=== PATIENT | male | born 1975 | race Hispanic/Latino ===

== ENCOUNTER 2017-10-09 18:33 | Inpatient (IN) | payer BC ==
[~2017-10-09] VITALS: Ht 165.1 cm; Wt 68.0 kg
[2017-10-09] MEDS ORDERED: ALBUTEROL SULF 0.083% NEB SOLN 3 ML NEB NEB STA (18:56)
[2017-10-09] MEDS ORDERED: IPRATROPIUM BROMIDE 0.02% 2.5 ML NEB NEB STA (18:56)
[2017-10-09] MEDS ORDERED: ACETAMINOPHEN 325 MG TAB ONE (19:02)
[2017-10-09] MEDS ORDERED: ACETAMINOPHEN 325 MG TAB PO ONE (19:15)
[2017-10-09 19:18] LABS: BASOPHILS % 0.2 % (0.0-1.0); EOSINOPHILS % 0.1 % (0.0-6.0); HEMATOCRIT 42.3 % (38.2-49.6); HEMOGLOBIN 14.1 g/dL (14.0-18.0); MEAN CORPUSCULAR HEMOGLOBIN 27.6 pg (28-32); MEAN CORPUSCULAR HGB CONC 33.3 g/dL (31-35); MEAN CORPUSCULAR VOLUME 82.8 fL (81-99); MONOCYTES # (AUTO) 1.6 (0.2-0.8); MONOCYTES % 8.8 % (4.4-11.3); NEUTROPHILS # (AUTO) 14.2 (2.1-6.9); NEUTROPHILS % 79.3 % (38.7-80.0); PLATELET COUNT 252 x10e3/uL (140-360); RED BLOOD COUNT 5.11 x10e6/uL (4.3-5.7)
--- NOTE | 2017-10-09 19:20 | Diagnostic Imaging Report ---
EXAMINATION: CHEST 2 VIEWS INDICATION: Bodyaches. Fever. COMPARISON: None FINDINGS: TUBES and LINES: None. LUNGS: Small nodular densities projected on the right upper lobe may represent granulomata, however, stability is uncertain. There is no evidence of pneumonia or pulmonary edema. PLEURA: Mild biapical pleural scarring. No pleural effusion or pneumothorax. HEART AND MEDIASTINUM: The cardiomediastinal silhouette is unremarkable. BONES AND SOFT TISSUES: No acute osseous lesion. Soft tissues are unremarkable. UPPER ABDOMEN: No free air under the diaphragm. IMPRESSION: 1. No acute thoracic abnormality. 2. Small nodular densities in the right upper lobe may represent granulomata, however, recommend a follow-up chest PA and lateral views in 3 months to evaluate stability. Signed by: Dr. Johnnie Moore M.D. on 10/09/2017 7:16 PM
[2017-10-09 19:35] LABS: STREPTOCOCCUS GRP A ANTIGEN NEGATIVE (NEGATIVE)
[2017-10-09 19:39] LABS: ALANINE AMINOTRANSFERASE 23 IU/L (0-55); ALBUMIN 3.5 g/dL (3.5-5.0); ALBUMIN/GLOBULIN RATIO 0.8 (0.8-2.0); ALKALINE PHOSPHATASE 63 IU/L (40-150); ANION GAP 11.5 mmol/L (8-16); BLOOD UREA NITROGEN 16 mg/dL (7-26); BUN/CREATININE RATIO 14 (6-25); CARBON DIOXIDE 27 mmol/L (22-29); CHLORIDE 101 mmol/L (98-107); CREATININE, SERUM 1.12 mg/dL (0.72-1.25); EST GLOMERULAR FILTRATION RATE > 60 ML/MIN (60-); GLUCOSE 117 mg/dL (74-118); POTASSIUM 3.5 mmol/L (3.5-5.1); SODIUM 136 mmol/L (136-145)
[2017-10-09 19:46] LABS: INFLUENZAE A&B ANTIGEN (RAPID) NEGATIVE (NEGATIVE)
[2017-10-09] MEDS ORDERED: IOPAMIDOL 370 MG/ML 200 ML INFUS..BTL INJ ONE (20:13)
[2017-10-09] MEDS ORDERED: SODIUM CHLORIDE 0.9% 50ML 50 ML ONE (20:13)
--- NOTE | 2017-10-09 20:28 | Diagnostic Imaging Report ---
EXAM: CT Chest WITH contrast 10/09/2017 7:42 PM INDICATION: Fever. Cough. Congestion. COMPARISON: None. Chest x-ray dated . TECHNIQUE: Chest was scanned utilizing a multidetector helical scanner from the lung apex through the level of the adrenal glands without administration of IV contrast. Coronal and sagittal reformations were obtained. Routine protocol was performed. IV CONTRAST: 100 mL of Omnipaque 300 RADIATION DOSE: Total DLP: 473.34 mGy*cm Estimated effective dose: (DLP x 0.014 x size factor) mSv COMPLICATIONS: None FINDINGS: LINES/ TUBES: None. LUNGS AND AIRWAYS: Focal patchy consolidation in the posterior right lower lobe, and small reticular nodular opacities in the inferior right middle lobe, right lower lobe and to lesser degree left lower lobe posteriorly, consistent with infectious etiology, possibly aspiration pneumonia. 3 mm calcified granuloma in the right upper lobe on image 36 series 3 corresponds with the nodule identified on chest x-ray performed earlier on the same day. There is mild mucous plugging in posterior right lower lobe bronchi. PLEURA: No pleural effusion or pneumothorax. HEART AND MEDIASTINUM: The thyroid gland is normal. No mediastinal, hilar or axillary lymphadenopathy. The heart is normal in size.. There is no pericardial effusion. UPPER ABDOMEN: Limited non-contrast views of the upper abdomen show subcentimeter low-attenuation lesions scattered throughout the liver, which are too small to be characterize, however, most likely benign in etiology (small cysts (. The adrenal glands are normal. BONES: No acute osseous abnormality. SOFT TISSUES: Unremarkable. IMPRESSION: 1. Findings with infectious etiology/pneumonia involving the right middle lobe, and bilateral lower lobes, right greater than left. This may be secondary to aspiration. 2. 3 mm calcified granuloma in the right upper lobe. Signed by: Dr. Johnnie Moore M.D. on 10/09/2017 8:25 PM
[2017-10-09] MEDS ORDERED: AZITHROMYCIN 500MG/NS 250 ML 250 ML ONE (20:44)
[2017-10-09] MEDS ORDERED: ACETAMINOPHEN 325 MG TAB PO PRN (20:45)
[2017-10-09] MEDS ORDERED: AZITHROMYCIN 500MG/SOD CHL 0.9% 250ML BAG IV SCH (20:45)
[2017-10-09] MEDS: AZITHROMYCIN 500MG/NS 250 ML 250 ML IV SCH (20:46)
[2017-10-09] MEDS: ALBUTEROL SULF 0.083% NEB SOLN 3 ML NEB NEB SCH ×2 (20:47→23:55)
[2017-10-09 20:56] LABS: CREATINE KINASE 50 IU/L (30-200)
[2017-10-09] MEDS ORDERED: CEFTRIAXONE SOD 1 GM VIAL IV SCH (21:00)
--- OUTSIDE RECORDS SUMMARY | 2017-10-09 21:01 | XMS REPORT ---
Author Author [facility] Address Unknown Phone Unavailable Care Team Providers Care Election Assistant Name Role Phone SHYLA VELEZ Unavailable Unavailable Problems This patient has no known problems. Allergies, Adverse Reactions, Alerts This patient has no known allergies or adverse reactions. Medications This patient has no known medications. Results Test Description Test Time Test Comments Text Results Atomic Results Result Comments CT CHEST W [place] [address] Patient Name: ALPESH SCHAFER MR #: [id number] : 1975 Age/Sex: 42/M Req #: [id number] Adm Physician: Ordered by: DEBBIE MTZ TOWN MANAGER Report #: [id number] Location: ER Room/Bed: Procedure: [id number] CT/CT CHEST W Exam Date: 10/09/17 Exam Time: 1944 REPORT STATUS: Signed EXAM: CT Chest WITH contrast 10/09/2017 7:42 PM INDICATION: Fever. Cough. Congestion. COMPARISON: None. Chest x-ray dated . TECHNIQUE: Chest was scanned utilizing a multidetector helical scanner from the lung apex through the level of the adrenal glands without administration of IV contrast. Coronal and sagittal reformations were obtained. Routine protocol was performed. IV CONTRAST: 100 mL of Omnipaque 300 RADIATION DOSE: Total DLP: 473.34 mGy*cm Estimated effective dose: (DLP x 0.014 x size factor) mSv COMPLICATIONS: None FINDINGS: LINES/ TUBES: None. LUNGS AND AIRWAYS: Focal patchy consolidation in the posterior right lower lobe, and small reticular nodular opacities in the inferior right middle lobe, right lower lobe and to lesser degree left lower lobe posteriorly, consistent with infectious etiology, possibly aspiration pneumonia. 3 mm calcified granuloma in the right upper lobe on image 36 series 3 corresponds with the nodule identified on chest x-ray performed earlier on the same day. There is mild mucous plugging in posterior right lower lobe bronchi. PLEURA: No pleural effusion or pneumothorax. HEART AND MEDIASTINUM: The thyroid gland is normal. No mediastinal, hilar or axillary lymphadenopathy. The heart is normal in size.. There is no pericardial effusion. UPPER ABDOMEN: Limited non-contrast views of the upper abdomen show subcentimeter low- attenuation lesions scattered throughout the liver, which are too small to be characterize, however, most likely benign in etiology (small cysts (. The adrenal glands are normal. BONES: No acute osseous abnormality. SOFT TISSUES: Unremarkable. IMPRESSION: 1. Findings with infectious etiology/pneumonia involving the right middle lobe, and bilateral lower lobes , right greater than left. This may be secondary to aspiration. 2. 3 mm calcified granuloma in the right upper lobe. Signed by: Dr. Johnnie Calzada M.D. on 10/09/2017 8:25 PM Dictated By: JOSHUA CALZADA MD, MD 24 Transcribed By : JOSE RAMON on 10/09/172024 COPY TO: DEBBIE MTZ TOWN MANAGER CHEST 2 VIEWS [place] [address] Patient Name: ALPESH SCHAFER MR #: [id number] : 1975 Age/Sex: 42/M Req #: [id number] Adm Physician: Ordered by: DEBBIE MTZ TOWN MANAGER Report #: [id number] Location: ER Room/Bed: Procedure: [id number] DX/CHEST 2 VIEWS Exam Date: 10/09/17 Exam Time: 1899 REPORT STATUS: Signed EXAMINATION: CHEST 2 VIEWS INDICATION: Bodyaches. Fever. COMPARISON: None FINDINGS: TUBES and LINES: None. LUNGS: Small nodular densities projected on the right upper lobe may represent granulomata, however, stability is uncertain. There is no evidence of pneumonia or pulmonary edema. PLEURA: Mild biapical pleural scarring. No pleural effusion or pneumothorax. HEART AND MEDIASTINUM: The cardiomediastinal silhouette is unremarkable. BONES AND SOFT TISSUES: No acute osseous lesion. Soft tissues are unremarkable. UPPER ABDOMEN: No free air under the diaphragm. IMPRESSION: 1. No acute thoracic abnormality. 2. Small nodular densities in the right upper lobe may represent granulomata, however, recommend a follow-up chest PA and lateral views in 3 months to evaluate stability. Signed by: Dr. Johnnie Calzada M.D. on 10/09/2017 7:16 PM Dictated By: JOSHUA CALZADA MD, MD 15 Transcribed By: JOSE RAMON on 10/09/171915 COPY TO: DEBBIE MTZ NP
[2017-10-09] MEDS: IPRATROPIUM BROMIDE 0.02% 2.5 ML NEB NEB SCH ×2 (21:12→23:55)
[2017-10-09] MEDS: SODIUM CHLORIDE 0.9% 1000ML 1,000 ML IV SCH (21:51)
[2017-10-09 22:30] VITALS: BP 112/67
[2017-10-10] VITALS (8 sets, daily range): BP systolic 96–119; BP diastolic 58–70
[2017-10-10] MEDS: ALBUTEROL SULF 0.083% NEB SOLN 3 ML NEB NEB SCH ×6 (03:50→23:15)
[2017-10-10] MEDS: SODIUM CHLORIDE 0.9% 1000ML 1,000 ML IV SCH ×3 (05:08→20:36)
[2017-10-10 06:44] LABS: BASOPHILS % 0.1 % (0.0-1.0); HEMATOCRIT 36.7 % (38.2-49.6); HEMOGLOBIN 12.3 g/dL (14.0-18.0); LYMPHOCYTES # (AUTO) 1.7 (1.0-3.2); LYMPHOCYTES % 12.1 % (18.0-39.1); MEAN CORPUSCULAR HEMOGLOBIN 27.7 pg (28-32); MEAN CORPUSCULAR HGB CONC 33.5 g/dL (31-35); MEAN CORPUSCULAR VOLUME 82.7 fL (81-99); MONOCYTES # (AUTO) 1.2 (0.2-0.8); MONOCYTES % 8.4 % (4.4-11.3); NEUTROPHILS # (AUTO) 10.7 (2.1-6.9); NEUTROPHILS % 77.9 % (38.7-80.0); PLATELET COUNT 219 x10e3/uL (140-360); RED BLOOD COUNT 4.44 x10e6/uL (4.3-5.7); RED CELL DISTRIBUTION WIDTH 14.3 % (11.7-14.4)
[2017-10-10] MEDS: IPRATROPIUM BROMIDE 0.02% 2.5 ML NEB NEB SCH ×3 (07:00→21:15)
[2017-10-10 07:07] LABS: CREATINE KINASE 28 IU/L (30-200)
[2017-10-10 07:22] LABS: ALANINE AMINOTRANSFERASE 20 IU/L (0-55); ALBUMIN 3.1 g/dL (3.5-5.0); ALBUMIN/GLOBULIN RATIO 1.1 (0.8-2.0); ALKALINE PHOSPHATASE 52 IU/L (40-150); ANION GAP 13.7 mmol/L (8-16); BLOOD UREA NITROGEN 14 mg/dL (7-26); BUN/CREATININE RATIO 19 (6-25); CALCIUM 8.2 mg/dL (8.4-10.2); CARBON DIOXIDE 24 mmol/L (22-29); CHLORIDE 106 mmol/L (98-107); CREATININE, SERUM 0.75 mg/dL (0.72-1.25); EST GLOMERULAR FILTRATION RATE > 60 ML/MIN (60-); GLUCOSE 122 mg/dL (74-118); POTASSIUM 3.7 mmol/L (3.5-5.1); SODIUM 140 mmol/L (136-145)
[2017-10-10] MEDS: FAMOTIDINE 20 MG TAB PO SCH ×2 (12:00→16:30)
[2017-10-10] MEDS ORDERED: CEFTRIAXONE SOD 1 GM/NS 50 ML 50 ML IV SCH (12:00)
[2017-10-10] MEDS: GUAIFENESIN 600MG/DEXTROMETHORPHAN 30MG TABSR PO SCH ×3 (12:00→23:06)
[2017-10-10] MEDS ORDERED: CEFTRIAXONE SOD 1 GM VIAL IV ONE (12:15)
--- NOTE | 2017-10-10 13:30 | History and Physical ---
PRIMARY CARE PROVIDER: Dr. Michael Barraza, a local doctor that does not come to the hospital. CHIEF COMPLAINT: Fever, shortness of breath and cough. HISTORY OF PRESENT ILLNESS: Mr. Quarles is a 42-year-old gentleman who has had upper respiratory symptoms, cough, fever, chest congestion for about the last 2 weeks. He was seen initially by his PCP, treated with allergy medication. He did not get better, was seen a few days ago in the office, was started on Levaquin, again did not get better. Came to the emergency room for evaluation, was found have a temperature of 101.5, a white count of 17.8, and multifocal pneumonia on the CT chest, was admitted for IV antibiotics for failure of outpatient therapy for pneumonia. REVIEW OF SYSTEMS: He has had subjective fever, chills. He has had sinus congestion. Denies sore throat. He denies chest pain or palpitations. He actually has had some chest pain that is pleuritic in nature. He has had chest congestion and a productive cough and shortness of breath. He denies abdominal pain, nausea, vomiting or melena. He denies dysuria or flank pain. He denies rash or pruritus. He denies joint pain or swelling. He denies headache, vertigo or loss of consciousness. He denies depression, agitation, homicidal or suicidal ideation. PAST MEDICAL HISTORY: Negative. He has no chronic medical problems, takes no chronic medication. He has no past surgical history as well. He has NO KNOWN DRUG ALLERGIES, and he is not a smoker. FAMILY HISTORY: Unremarkable. SOCIAL HISTORY: The patient is , bilingual, speaks good Croatian. He does not smoke, drink or use illegal drugs, and he is generally independently functioning. PHYSICAL EXAM: PSYCHIATRIC: He is alert and oriented times 3 with normal mood and affect. CONSTITUTIONAL: He has a normal body habitus. Is in no acute distress. VITAL SIGNS: Temperature initially 101.5, currently 97.6. Pulse rate initially 105, currently 71. Blood pressure initially 132/69, currently 115/70. Respiratory rate 20. O2 sat 98% on 2 liter nasal cannula. HEENT: His head is atraumatic. His eyes are anicteric with clear conjunctivae. Ears and nares are without erythema or discharge. Oropharynx is clear. NECK: Is supple with no mass or thyromegaly. LYMPHATIC SYSTEM: He has no palpable cervical, axillary or inguinal adenopathy. CARDIOVASCULAR: His heart has a regular rate and rhythm without murmur or extra heart sound. He has no carotid bruit. He has no peripheral edema. He has palpable dorsal pedal pulses. RESPIRATORY: Lungs are clear to auscultation and percussion with normal respiratory effort. GASTROINTESTINAL: His abdomen is soft without organomegaly, masses or tenderness. He has normal bowel sounds present. CUTANEOUS: His skin is warm and dry to the touch with no rash or skin breakdown. MUSCULOSKELETAL: His joints are in normal alignment without erythema or swelling. He has no calf tenderness. NEUROLOGIC: Exam is nonfocal with intact cranial nerves and no motor or sensory deficits. DIAGNOSTIC STUDIES: Chest x-ray shows a nodular density in the right upper lobe. CT scan of the chest shows right middle lobe and bilateral lower lobe infiltrates consistent with multifocal pneumonia. His flu screen is negative. His strep screen is negative. His Monospot is negative. Troponin less than 0.001 and less than 0.001. CBC shows a white count of 17.88 with 79% neutrophils, 11% lymphocytes, 9% monocytes. Hemoglobin 14.1, hematocrit 42.3 and platelet count 252,000. His chemistry shows normal electrolytes. CO2 27. Creatinine 1.12, BUN 16 for a normal GFR. Glucose 117. Calcium 9.0. IMPRESSION AND PLAN: 1. Bilateral multifocal pneumonia with sepsis that has failed outpatient treatment. The patient is admitted for supplemental oxygen, aggressive nebulizer treatments, IV Zithromax, Rocephin, and p.o. Mucinex for expectoration. 2. For prophylaxis, the patient will be getting Lovenox for DVT prophylaxis and Pepcid for GI prophylaxis. Job#: [id number] RAGHAV
[2017-10-10] MEDS: ENOXAPARIN SOD INJ 40 MG/0.4 ML SYR SC SCH (17:00)
[2017-10-10] MEDS: AZITHROMYCIN 500MG/NS 250 ML 250 ML IV SCH (20:39)
[2017-10-10] MEDS: CEFTRIAXONE SOD 1 GM VIAL IV SCH (20:39)
[2017-10-11] VITALS (8 sets, daily range): BP systolic 103–125; BP diastolic 58–76
[2017-10-11] MEDS: IPRATROPIUM BROMIDE 0.02% 2.5 ML NEB NEB SCH ×4 (01:00→19:00)
[2017-10-11] MEDS: SODIUM CHLORIDE 0.9% 1000ML 1,000 ML IV SCH ×3 (04:36→19:18)
[2017-10-11] MEDS: GUAIFENESIN 600MG/DEXTROMETHORPHAN 30MG TABSR PO SCH ×4 (06:00→23:55)
[2017-10-11 06:29] LABS: BASOPHILS % 0.3 % (0.0-1.0); EOSINOPHILS # (AUTO) 0.2 (0.0-0.4); EOSINOPHILS % 1.7 % (0.0-6.0); HEMATOCRIT 37.7 % (38.2-49.6); HEMOGLOBIN 12.5 g/dL (14.0-18.0); LYMPHOCYTES # (AUTO) 3.6 (1.0-3.2); LYMPHOCYTES % 29.9 % (18.0-39.1); MEAN CORPUSCULAR HEMOGLOBIN 27.5 pg (28-32); MEAN CORPUSCULAR HGB CONC 33.2 g/dL (31-35); MONOCYTES % 8.5 % (4.4-11.3); NEUTROPHILS % 58.9 % (38.7-80.0); PLATELET COUNT 234 x10e3/uL (140-360); RED BLOOD COUNT 4.54 x10e6/uL (4.3-5.7); RED CELL DISTRIBUTION WIDTH 14.4 % (11.7-14.4)
[2017-10-11 06:50] LABS: ANION GAP 10.1 mmol/L (8-16); BLOOD UREA NITROGEN 10 mg/dL (7-26); BUN/CREATININE RATIO 11 (6-25); CALCIUM 8.6 mg/dL (8.4-10.2); CARBON DIOXIDE 26 mmol/L (22-29); CHLORIDE 106 mmol/L (98-107); CREATININE, SERUM 0.92 mg/dL (0.72-1.25); EST GLOMERULAR FILTRATION RATE > 60 ML/MIN (60-); GLUCOSE 95 mg/dL (74-118); POTASSIUM 4.1 mmol/L (3.5-5.1); SODIUM 138 mmol/L (136-145)
[2017-10-11] MEDS: ALBUTEROL SULF 0.083% NEB SOLN 3 ML NEB NEB SCH ×5 (07:40→23:00)
[2017-10-11] MEDS: FAMOTIDINE 20 MG TAB PO SCH ×2 (08:03→16:48)
[2017-10-11] MEDS: CEFTRIAXONE SOD 1 GM VIAL IV SCH ×2 (08:03→20:46)
[2017-10-11] MEDS: ENOXAPARIN SOD INJ 40 MG/0.4 ML SYR SC SCH (16:48)
[2017-10-11] MEDS: AZITHROMYCIN 500MG/NS 250 ML 250 ML IV SCH (20:46)
[2017-10-12] VITALS (7 sets, daily range): BP systolic 96–118; BP diastolic 58–77
[2017-10-12] MEDS: IPRATROPIUM BROMIDE 0.02% 2.5 ML NEB NEB SCH ×5 (01:00→23:20)
[2017-10-12] MEDS: ALBUTEROL SULF 0.083% NEB SOLN 3 ML NEB NEB SCH ×6 (03:00→23:20)
[2017-10-12] MEDS: SODIUM CHLORIDE 0.9% 1000ML 1,000 ML IV SCH (04:36)
[2017-10-12] MEDS: GUAIFENESIN 600MG/DEXTROMETHORPHAN 30MG TABSR PO SCH ×3 (05:36→17:00)
[2017-10-12 08:00] LABS: BASOPHILS % 0.4 % (0.0-1.0); EOSINOPHILS # (AUTO) 0.5 (0.0-0.4); EOSINOPHILS % 7.3 % (0.0-6.0); HEMATOCRIT 37.4 % (38.2-49.6); HEMOGLOBIN 12.3 g/dL (14.0-18.0); LYMPHOCYTES # (AUTO) 3.1 (1.0-3.2); LYMPHOCYTES % 42.7 % (18.0-39.1); MEAN CORPUSCULAR HEMOGLOBIN 27.6 pg (28-32); MEAN CORPUSCULAR HGB CONC 32.9 g/dL (31-35); MEAN CORPUSCULAR VOLUME 83.9 fL (81-99); MONOCYTES # (AUTO) 0.6 (0.2-0.8); MONOCYTES % 7.8 % (4.4-11.3); PLATELET COUNT 251 x10e3/uL (140-360); RED BLOOD COUNT 4.46 x10e6/uL (4.3-5.7); RED CELL DISTRIBUTION WIDTH 14.3 % (11.7-14.4)
[2017-10-12] MEDS: CEFTRIAXONE SOD 1 GM VIAL IV SCH ×2 (08:25→21:00)
[2017-10-12] MEDS: FAMOTIDINE 20 MG TAB PO SCH ×2 (08:25→17:00)
[2017-10-12 08:28] LABS: BLOOD UREA NITROGEN 10 mg/dL (7-26); BUN/CREATININE RATIO 13 (6-25); CALCIUM 8.7 mg/dL (8.4-10.2); CARBON DIOXIDE 27 mmol/L (22-29); CHLORIDE 105 mmol/L (98-107); EST GLOMERULAR FILTRATION RATE > 60 ML/MIN (60-); GLUCOSE 89 mg/dL (74-118); MAGNESIUM 1.9 MG/DL (1.3-2.1); PHOSPHORUS 3.3 MG/DL (2.3-4.7); SODIUM 138 mmol/L (136-145)
[2017-10-12] MEDS ORDERED: ONDANSETRON HCL INJ 2 MG/ML VIAL IV PRN (12:45)
[2017-10-12] MEDS ORDERED: HYDRALAZINE HCL 20 MG/ML VIAL IV PRN (12:45)
[2017-10-12] MEDS: ACETYLCYSTEINE 20% INHAL SOLN 30 ML VIAL INH SCH ×3 (15:00→23:00)
[2017-10-12] MEDS: ENOXAPARIN SOD INJ 40 MG/0.4 ML SYR SC SCH (17:00)
[2017-10-12] MEDS: AZITHROMYCIN 500MG/NS 250 ML 250 ML IV SCH (21:00)
[2017-10-13] VITALS: BP 121/77
[2017-10-13] MEDS: ACETYLCYSTEINE 20% INHAL SOLN 30 ML VIAL INH SCH ×6 (03:00→23:00)
[2017-10-13] MEDS: ALBUTEROL SULF 0.083% NEB SOLN 3 ML NEB NEB SCH ×6 (03:11→22:50)
[2017-10-13 04:00] VITALS: BP 112/59
[2017-10-13] MEDS: GUAIFENESIN 600MG/DEXTROMETHORPHAN 30MG TABSR PO SCH ×5 (05:23→23:52)
[2017-10-13 07:10] LABS: BASOPHILS % 0.5 % (0.0-1.0); EOSINOPHILS # (AUTO) 0.3 (0.0-0.4); EOSINOPHILS % 4.2 % (0.0-6.0); HEMATOCRIT 38.9 % (38.2-49.6); HEMOGLOBIN 12.9 g/dL (14.0-18.0); LYMPHOCYTES # (AUTO) 2.1 (1.0-3.2); MEAN CORPUSCULAR HEMOGLOBIN 27.8 pg (28-32); MEAN CORPUSCULAR HGB CONC 33.2 g/dL (31-35); MEAN CORPUSCULAR VOLUME 83.8 fL (81-99); MONOCYTES # (AUTO) 0.4 (0.2-0.8); MONOCYTES % 5.2 % (4.4-11.3); NEUTROPHILS # (AUTO) 5.1 (2.1-6.9); PLATELET COUNT 298 x10e3/uL (140-360); RED BLOOD COUNT 4.64 x10e6/uL (4.3-5.7); RED CELL DISTRIBUTION WIDTH 14.2 % (11.7-14.4)
[2017-10-13 07:43] LABS: ANION GAP 10.8 mmol/L (8-16); BLOOD UREA NITROGEN 12 mg/dL (7-26); BUN/CREATININE RATIO 16 (6-25); CALCIUM 8.9 mg/dL (8.4-10.2); CARBON DIOXIDE 25 mmol/L (22-29); CHLORIDE 104 mmol/L (98-107); CREATININE, SERUM 0.76 mg/dL (0.72-1.25); EST GLOMERULAR FILTRATION RATE > 60 ML/MIN (60-); GLUCOSE 100 mg/dL (74-118); POTASSIUM 3.8 mmol/L (3.5-5.1); SODIUM 136 mmol/L (136-145)
[2017-10-13] MEDS: IPRATROPIUM BROMIDE 0.02% 2.5 ML NEB NEB SCH ×4 (07:45→22:50)
--- NOTE | 2017-10-13 08:06 | Diagnostic Imaging Report ---
EXAMINATION: CHEST SINGLE (PORTABLE) INDICATION: \S\f/u pna \[id number] \S\[id number] COMPARISON: 10/09/2017 FINDINGS: AP view TUBES and LINES: None. LUNGS: Lungs are well inflated. No definite focal consolidation. Airspace opacity seen in right base on prior CT are not as clearly seen on this exam. PLEURA: No pleural effusion or pneumothorax. HEART AND MEDIASTINUM: The cardiomediastinal silhouette is unremarkable. BONES AND SOFT TISSUES: No acute osseous lesion. Soft tissues are unremarkable. UPPER ABDOMEN: No free air under the diaphragm. IMPRESSION: No definite focal consolidation. Airspace opacity seen in right base on prior CT, are not as clearly seen on this exam. Signed by: Dr. Aashish Blackman MD on 10/13/2017 8:03 AM
[2017-10-13] MEDS: CEFTRIAXONE SOD 1 GM VIAL IV SCH ×2 (08:45→21:00)
[2017-10-13] MEDS: FAMOTIDINE 20 MG TAB PO SCH ×2 (08:45→17:06)
[2017-10-13 11:10] VITALS: BP 116/56
[2017-10-13 12:00] VITALS: BP 127/73
[2017-10-13 16:00] VITALS: BP 123/60
[2017-10-13] MEDS: ENOXAPARIN SOD INJ 40 MG/0.4 ML SYR SC SCH (17:16)
[2017-10-13 20:00] VITALS: BP 108/82
[2017-10-13] MEDS: AZITHROMYCIN 500MG/NS 250 ML 250 ML IV SCH (21:00)
[2017-10-14] VITALS: BP 101/60
[2017-10-14] MEDS: ACETYLCYSTEINE 20% INHAL SOLN 30 ML VIAL INH SCH ×3 (03:00→11:00)
[2017-10-14] MEDS: ALBUTEROL SULF 0.083% NEB SOLN 3 ML NEB NEB SCH ×3 (03:00→10:59)
[2017-10-14] MEDS: GUAIFENESIN 600MG/DEXTROMETHORPHAN 30MG TABSR PO SCH (05:10)
[2017-10-14 06:28] LABS: BASOPHILS % 0.4 % (0.0-1.0); EOSINOPHILS # (AUTO) 0.4 (0.0-0.4); EOSINOPHILS % 4.1 % (0.0-6.0); HEMATOCRIT 38.8 % (38.2-49.6); HEMOGLOBIN 12.6 g/dL (14.0-18.0); LYMPHOCYTES # (AUTO) 2.7 (1.0-3.2); LYMPHOCYTES % 26.1 % (18.0-39.1); MEAN CORPUSCULAR HEMOGLOBIN 27.2 pg (28-32); MEAN CORPUSCULAR HGB CONC 32.5 g/dL (31-35); MEAN CORPUSCULAR VOLUME 83.8 fL (81-99); MONOCYTES # (AUTO) 0.6 (0.2-0.8); NEUTROPHILS # (AUTO) 6.3 (2.1-6.9); NEUTROPHILS % 62.2 % (38.7-80.0); PLATELET COUNT 271 x10e3/uL (140-360); RED BLOOD COUNT 4.63 x10e6/uL (4.3-5.7); RED CELL DISTRIBUTION WIDTH 14.1 % (11.7-14.4)
[2017-10-14 06:47] LABS: ANION GAP 9.3 mmol/L (8-16); BLOOD UREA NITROGEN 19 mg/dL (7-26); BUN/CREATININE RATIO 17 (6-25); CALCIUM 8.8 mg/dL (8.4-10.2); CARBON DIOXIDE 28 mmol/L (22-29); CHLORIDE 106 mmol/L (98-107); EST GLOMERULAR FILTRATION RATE > 60 ML/MIN (60-); GLUCOSE 97 mg/dL (74-118); MAGNESIUM 2.1 MG/DL (1.3-2.1); POTASSIUM 4.3 mmol/L (3.5-5.1); SODIUM 139 mmol/L (136-145)
[2017-10-14] MEDS: IPRATROPIUM BROMIDE 0.02% 2.5 ML NEB NEB SCH ×2 (07:00→10:59)
[2017-10-14] MEDS: FAMOTIDINE 20 MG TAB PO SCH (07:30)
[2017-10-14 08:00] VITALS: BP 109/78
[2017-10-14] MEDS: CEFTRIAXONE SOD 1 GM VIAL IV SCH (08:42)
[2017-10-14] MEDS ORDERED: ceftin PO (09:09)
[2017-10-14] MEDS ORDERED: IPRATROPIU0.2 MG/1 M NEB (09:09)
[2017-10-14] MEDS ORDERED: ALBUTEROL2.5 MG/3 M NEB (09:09)
[2017-10-14] MEDS ORDERED: MUCINEX DM ER1 EACH PO (09:09)
--- NOTE | 2017-10-15 14:35 | Discharge Summary ---
ADMISSION DIAGNOSIS: Bilateral multifocal pneumonia with sepsis and failed outpatient treatment. DISCHARGE DIAGNOSIS: Bilateral multifocal pneumonia with sepsis and failed outpatient treatment, rule out mononucleosis, rule out influenza, rule out streptococcus. HISTORY: Patient does not have any medical history and no surgical history. HOSPITAL COURSE: This 42-year-old male presented with coughing present for about 2 weeks. He was initially seen by his PCP and treated with allergy medication. He did not get better. When he followed up, they started him on Levaquin. Again, he did not get better. He came to the ER and was found to have a temp of 101 and a white count of 17.8. No acute thoracic abnormality. Small nodular density in the right upper lobe may represent granulomata; however, recommend followup in [address] of the chest showed findings in bilateral lower lobes, greater on the right than the left. It again showed the right lobe 3-mm calcified granuloma. The patient was started on Zithromax, Rocephin and Mucinex. The patient was still congested so later . He subsequently started to feel better and was given 6 more days of Ceftin, nebulizers as he has a nebulizer at home, and Mucinex. He will follow up with primary care in 1 to 2 weeks. Vital signs were stable, and labs were within normal limits. Dictated by: Sana Kirkland NP RALF MARTINS MD Job#: [id number]
== END 2017-10-14 11:21 | disposition home or self-care (01) | DRG 871 ==
LOC: ER 18:33 → ERHOLD 20:55 → MED/SURG2 21:51
PROVIDERS: ADMIT Internal Medicine; ATTEND Internal Medicine
DX: A41.9 Sepsis, unspecified organism (principal); J18.9 Pneumonia, unspecified organism
CPT/HCPCS: 36415; 71045; 71046; 71260; 80048; 80053; 82550; 82553; 83518; 83735; 84100; 84484; 85025; 86308; 87040; 87070; 87400; 94640; 96365; 96367; 96374; 96376; 99284; J0456; J0696; J1650; J7030; Q9967